=== PATIENT | female | born 1950 | race Caucasian/White ===

== ENCOUNTER 2018-01-21 20:41 | Emergency (ER) | payer MEDICARE ==
[~2018-01-21] VITALS: Ht 165.1 cm; Wt 81.8 kg
[2018-01-21] MEDS ORDERED: TETanus/Pertussis (Acell)/Diphther VAC/PF (Tdap-Adult) 0.5ml syringe IM ONE (22:10)
[2018-01-21] MEDS ORDERED: bacitracin 15gm ointment TP ONE (22:15)
[2018-01-21] MEDS ORDERED: BACI28OI9 TP (22:19)
[2018-01-21 22:32] VITALS: BP 127/80
== END 2018-01-21 23:30 | disposition home or self-care (01) ==
LOC: ER 20:45
DX: T23.242A Burn of second degree of multiple left fingers (nail), including thumb, initial encounter (principal); I10 Essential (primary) hypertension; X13.1XXA Other contact with steam and other hot vapors, initial encounter; Y93.89 Activity, other specified; Y92.89 Other specified places as the place of occurrence of the external cause; Y99.8 Other external cause status
CPT/HCPCS: 16020; 90471; 90715; 99284